=== PATIENT | female | born 1945 | race Caucasian/White ===

== ENCOUNTER → 2021-07-29 | Outpatient (CLI) | payer MEDICARE, BC | LOC: KOH-I 12:44 | DX: M54.5 Low back pain (principal); M53.3 Sacrococcygeal disorders, not elsewhere classified; M47.816 Spondylosis without myelopathy or radiculopathy, lumbar region | CPT/HCPCS: 72100; 72220 ==

== ENCOUNTER → 2021-09-19 | Outpatient (CLI) | payer MEDICARE, BC | LOC: RAD 12:53 | DX: I50.9 Heart failure, unspecified (principal) | CPT/HCPCS: 71045 ==

== ENCOUNTER → 2022-04-08 | Outpatient (CLI) | payer MEDICARE, BC | LOC: EXRD 15:31 | DX: I50.32 Chronic diastolic (congestive) heart failure (principal) | CPT/HCPCS: 71046 ==